=== PATIENT | female | born 1985 | race Two or more races ===

== ENCOUNTER 2018-01-01 23:58 | Emergency (ER) | payer OTHER ==
[2018-01-02 00:13] VITALS: BP 147/81; PULSE 69; TEMP 98.6; BMI 28.3
--- NOTE | 2018-01-02 01:09 | PDOC ---
Post Exposure HPI - General Chief Complaint: Blood/Body Fluid Exposure SJR Stated Complaint: NEEDLE STICK Time Seen by Provider: 01/02/18 00:44 History Source: Patient Exam Limitations: No Limitations - History of Present Illness Initial Comments: 01/02/18 02:21 Miss Moore is a 32-year-old female with no significant past medical history who presents emergency Department after a needlestick injury. 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. After doing a fingerstick on the patient the needle in completely retracted, she touched the tip of it. She injured her thumb. She noted bleeding right away. She washed the area completely. 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 She is a long-term patient who is hepatitis C and HIV negative in the past. PMH: Denies PSH: Denies Medication: Please see MAR ALLERGIES: NO KNOWN DRUG ALLERGIES Social: Denies alcohol, drug, cigarette use ROS: GENERAL/CONSTITUTIONAL: No: fever, chills HEAD, EYES, EARS, NOSE AND THROAT: No: change in vision CARDIOVASCULAR: No: chest pain, lightheadedness, palpitations RESPIRATORY: No: cough, shortness of breath GASTROINTESTINAL: No: nausea, vomiting, diarrhea, abdominal pain GENITOURINARY: No: dysuria, hematuria MUSCULOSKELETAL: Yes: left hand needle stick injury No: back pain, neck pain SKIN: Yes: needlestick injury NEUROLOGIC: No: headache, vertigo, paresthesias, weakness PE: GENERAL: The patient is in no acute distress. HEAD: Normal EYES: PERRLA, EOMI, sclera anicteric, conjunctiva clear. ENT: Ears normal, nares patent, oropharynx clear without exudates. LUNGS: Breath sounds equal, clear to auscultation bilaterally. No wheezes, and no crackles. HEART:Regular rate and rhythm, normal S1 and S2 without murmur, rub or gallop. ABDOMEN: Soft, nontender, normoactive bowel sounds. No guarding, no rebound. No masses palpable. EXTREMITIES: Normal range of motion NEUROLOGICAL: Cranial nerves II through XII grossly intact. Normal speech. No focal neurological deficits. MUSCULOSKELETAL: Back non-tender to palpation SKIN: No lesions noted, no surrounding erythema, no bleeding Past History - Past Medical History Allergies/Adverse Reactions: Allergies Allergy/AdvReac Type Severity Reaction Status Date / Time No Known Allergies Allergy Verified 04/10/15 09:12 Home Medications: Ambulatory Orders Diclofenac Potassium [Zipsor] 25 mg PO ASDIR 04/10/15 NK [No Known Home Medication] 04/10/15 - Suicide/Smoking/Psychosocial Hx Smoking History: Never smoked Have you smoked in the past 12 months: No Information on smoking cessation initiated: No Hx Alcohol Use: No Drug/Substance Use Hx: No Substance Use Type: None *Physical Exam - Vital Signs Last Vital Signs Temp Pulse Resp BP Pulse Ox 98.6 F 69 20 147/81 99 01/02/18 00:05 01/02/18 00:05 01/02/18 00:05 01/02/18 00:05 01/02/18 00:05 Medical Decision Making - Medical Decision Making 01/02/18 02:25 Needlestick injury Low risk for conversion (especially given patient has previously reportedly had HIV and Hep C testing which were previously negative - rate of conversion per [facility] 0.002% therefore PEP is not recommended) Will discharge to home Follow up with Infectious Disease/ Occupational Therapy tomorrow or at the latest in 2 days Clinical impression: needle stick injury, initial presentation 01/02/18 04:18 *DC/Admit/Observation/Transfer Diagnosis at time of Disposition: Needle stick injury of finger Qualifiers: Encounter type: initial encounter Qualified Code(s): S61.239A - Puncture wound without foreign body of unspecified finger without damage to nail, initial encounter - Discharge Dispostion Disposition: HOME Condition at time of disposition: Stable Decision to Admit order: No - Referrals Referrals: Sourav Polanco MD [Staff Physician] - Ruth Mccollum MD [Staff Physician] - - Patient Instructions Printed Discharge Instructions: How to Handle Body Fluid Exposure -- Healthcare Worker Additional Instructions: Thank you for coming in to the ER today Please follow up with infectious disease within 2-3 days Return to the ER if you decide you want to do PEP - Post Discharge Activity Forms/Work/School Notes: Back to Work
[2018-01-02 01:52] LABS: BASO % 0.6 % (0-2.0); HEMATOCRIT 41.8 % (32.4-45.2); HEMOGLOBIN 14.3 GM/dL (10.7-15.3); LYMPH % 35.1 % (8-40); MCH 32.7 pg (25.7-33.7); MCHC 34.2 g/dl (32.0-36.0); MEAN CELL VOLUME 95.7 fl (80-96); MEAN PLT VOLUME 8.8 fl (7.5-11.1); MONO % 6.8 % (3.8-10.2); NEUT % 56.5 % (42.8-82.8); PLATELET COUNT 243 K/MM3 (134-434); RBC 4.37 M/mm3 (3.60-5.2); RDW 12.8 % (11.6-15.6); WHITE BLOOD COUNT 8.3 K/mm3 (4.0-10.0)
[2018-01-02 02:19] LABS: ALBUMIN 4.1 g/dl (3.4-5.0); ALK PHOS 84 U/L (45-117); ANION GAP 8 MMOL/L (8-16); BILIRUBIN,TOTAL 0.5 mg/dL (0.2-1); BLOOD UREA NITROGEN 10 mg/dL (7-18); CALCIUM 9.1 mg/dL (8.5-10.1); CHLORIDE 104 mmol/L (98-107); CHOLESTEROL 135 mg/dL (50-200); CO2 27 mmol/L (21-32); CREATININE 0.8 mg/dL (0.55-1.3); GAMMA GLUTAMYL TRANSPEPTIDASE 22 U/L (5-85); GLUCOSE,RANDOM 79 mg/dL (74-106); LDH 151 U/L (84-246); PHOSPHOROUS 3.6 mg/dL (2.5-4.9); POTASSIUM 3.6 mmol/L (3.5-5.1); SGOT/AST 16 U/L (15-37); SGPT/ALT 20 U/L (13-61); SODIUM 139 mmol/L (136-145); TOT PROT 7.9 g/dl (6.4-8.2); TRIGLYCERIDES 50 mg/dL (0-150); URIC ACID 3.6 mg/dL (2.6-7.2)
[2018-01-03 06:06] LABS: HBsAG SCREEN Negative (Negative)
== END 2018-01-02 02:25 | disposition home or self-care (01) ==
LOC: JER 23:58
DX: Z77.21 Contact with and (suspected) exposure to potentially hazardous body fluids (principal); S61.032A Puncture wound without foreign body of left thumb without damage to nail, initial encounter; W46.1XXA Contact with contaminated hypodermic needle, initial encounter; Y93.F9 Activity, other caregiving; Y92.128 Other place in nursing home as the place of occurrence of the external cause; Y99.0 Civilian activity done for income or pay
CPT/HCPCS: 36415; 80053; 82465; 82977; 83615; 84100; 84478; 84550; 85025; 86317; 86706; 86803; 87340; 87389; 99282-25